=== PATIENT | female | born 1970 | race Caucasian/White ===

== ENCOUNTER → 2017-06-09 | Outpatient (CLI) | payer OTHER ==
[~2017-06-09] MED LIST: ALPR0.5T6 PO; CYCL5TAB PO; ESTR0.5T PO; ESTR2TAB PO; ESTRIDIAL PO; [UNRECOGNIZED DRUG - OTHER] PO
== END ==
LOC: STAR 14:33
PROVIDERS: ATTEND Specialist
DX: Z02.9 Encounter for administrative examinations, unspecified (principal)

== ENCOUNTER 2017-06-13 07:36 | Day surgery (SDC) | payer OTHER ==
[~2017-06-13] VITALS: Ht 172.7 cm; Wt 61.3 kg
[~2017-06-13 07:36] MED LIST changes: +BACITRACIN 50,000 UNIT ONE; +BUPIVACAINE/PF 0.25% ONE; +CEFAZOLIN 1,000 MG ONE; +EPINEPHRINE 1 MG/ML, 1ML ONE; +GENTAMICIN 80 MG/2 ML ONE; +NEOSPORIN OINT, 15GM ONE
[2017-06-13 07:48] VITALS: BP 129/76
[2017-06-13] MEDS ORDERED: LACTATED RINGERS 1,000 ML IV SCH (07:51)
[2017-06-13] MEDS ORDERED: SUCCINYLCHOLINE 20 MG/ML, 10ML ONE (08:03)
[2017-06-13] MEDS ORDERED: PROPOFOL 10 MG/ML, 20ML ONE (08:03)
[2017-06-13] MEDS ORDERED: ONDANSETRON 2MG/ML, 2ML ONE ×2 (08:03→11:21)
[2017-06-13] MEDS ORDERED: MIDAZOLAM 1 MG/ML, 2ML ONE (08:03)
[2017-06-13] MEDS ORDERED: FENTANYL PF 250 MCG/5ML ONE (08:03)
[2017-06-13] MEDS ORDERED: DEXAMETHASONE 4 MG/ML, 1ML ONE (08:04)
[2017-06-13] MEDS ORDERED: PROPOFOL 50 ML ONE ×2 (08:23→09:49)
[2017-06-13] MEDS ORDERED: EPINEPHRINE 1 MG/ML, 1ML ONE (09:14)
[2017-06-13] MEDS ORDERED: BUPIVACAINE/PF 0.25% ONE (09:14)
[2017-06-13] MEDS ORDERED: PROMETHAZINE 25 MG/ML, 1ML IV PRN (09:30)
[2017-06-13] MEDS ORDERED: morphine SULFATE 10 MG/ML, 1ML IV PRN (09:30)
[2017-06-13] MEDS ORDERED: OXYcodone 5 MG/5 ML ORAL.SOL UDC PO PRN (09:30)
[2017-06-13] MEDS ORDERED: EPHEDRINE 50 MG/ML, 1ML IVPush PRN (09:30)
[2017-06-13] MEDS ORDERED: LORazepam 2 MG/ML, 1ML IVPush PRN (09:30)
[2017-06-13] MEDS ORDERED: PROMETHAZINE 12.5 MG SUPP PR PRN (09:30)
[2017-06-13] MEDS ORDERED: ACETAMINOPHEN 325 MG TABLET PO PRN (09:30)
[2017-06-13] MEDS ORDERED: ONDANSETRON 2MG/ML, 2ML IVPush PRN (09:30)
[2017-06-13] MEDS ORDERED: MIDAZOLAM 1 MG/ML, 2ML IV PRN (09:30)
[2017-06-13] MEDS ORDERED: MEPERIDINE/PF 25MG/0.5ML IVPush PRN (09:30)
[2017-06-13] MEDS ORDERED: MEPERIDINE/PF 50 MG/ML ONE (10:41)
[2017-06-13] MEDS: FENTANYL PF 100 MCG/2ML IV PRN ×3 (10:50→11:10)
[2017-06-13] MEDS ORDERED: FENTANYL PF 100 MCG/2ML ONE (10:51)
[2017-06-13] MEDS ORDERED: HYDROcodone/APAP 7.5-325MG/15ML UDC ONE (11:15)
[2017-06-13] MEDS ORDERED: HYDROcodone/APAP 7.5-325MG/15ML UDC PO PRN (11:30)
== END 2017-06-13 13:45 ==
LOC: OUT 07:36
PROVIDERS: ATTEND Specialist
DX: T85.44XA Capsular contracture of breast implant, initial encounter (principal); N65.1 Disproportion of reconstructed breast; N64.89 Other specified disorders of breast; Z90.13 Acquired absence of bilateral breasts and nipples; Y83.8 Other surgical procedures as the cause of abnormal reaction of the patient, or of later complication, without mention of misadventure at the time of the procedure; Y92.89 Other specified places as the place of occurrence of the external cause
CPT/HCPCS: 19328; 19340; 19370; C1789; J0171; J0330; J0690; J1100; J1580; J2175; J2250; J2405; J2704; J3010; J3490; J7120

== ENCOUNTER → 2018-04-17 | Outpatient (CLI) | payer OTHER ==
[~2018-04-17] MED LIST changes: -BACITRACIN 50,000 UNIT ONE; -BUPIVACAINE/PF 0.25% ONE; -CEFAZOLIN 1,000 MG ONE; -EPINEPHRINE 1 MG/ML, 1ML ONE; -GENTAMICIN 80 MG/2 ML ONE; -NEOSPORIN OINT, 15GM ONE
== END | disposition home or self-care (01) ==
LOC: PETCFH 07:15
PROVIDERS: ATTEND Nurse Practitioner Primary Care
DX: R11.0 Nausea (principal); K21.9 Gastro-esophageal reflux disease without esophagitis; F06.31 Mood disorder due to known physiological condition with depressive features; F51.01 Primary insomnia
CPT/HCPCS: 78227; A9537